=== PATIENT | female | born 1965 | race Caucasian/White ===

== ENCOUNTER 2024-09-17 15:52 | Emergency (ER) | payer MEDICAID ==
[~2024-09-17] VITALS: Ht 160 cm; Wt 72.6 kg
[2024-09-17 15:57] VITALS: O2SAT 98
[2024-09-17 16:50] LABS: BASOPHILS % 1.0 % (0.0-2.0); EOSINOPHILS % 1.9 % (0.0-5.0); HEMATOCRIT. 42.8 % (36.0-48.0); HEMOGLOBIN. 14.1 g/dL (12.0-16.0); LYMPHOCYTES % 40.0 % (20.0-50.0); MEAN PLATELET VOLUME 7.8 fl (7.4-10.4); MONOCYTES % 5.5 % (2.0-8.0); NEUTROPHILS % 51.6 % (40.0-76.0); PLATELET 250 x1000/uL (130-400); RED BLOOD CELL COUNT 4.86 mill/uL (4.2-5.4); RED CELL DISTRIBUTION WIDTH 15.0 % (11.6-14.6)
[2024-09-17 17:14] LABS: CREATININE 0.8 mg/dL (0.6-1.0)
[2024-09-17 17:15] LABS: TROPONIN I HIGH SENSITIVITY < 4 ng/L (3.0-34); UREA NITROGEN BLOOD 12 mg/dL (9-23)
[2024-09-17 18:47] LABS: ASPARTATE AMINOTRANSFERASE 23 IU/L (<34); BILIRUBIN DIRECT 0.2 mg/dL (<=3.0); BILIRUBIN TOTAL 0.6 mg/dL (0.1-1.0)
[2024-09-17 18:48] LABS: PROTEIN TOTAL 7.7 g/dL (6.0-8.3)
[2024-09-17 22:25] LABS: CLARITY URINE CLEAR (CLEAR); COLOR URINE YELLOW (YELLOW); GLUCOSE URINE NEGATIVE (NEGATIVE); KETONES URINE 1+ (NEGATIVE); LEUKOCYTE ESTERASE URINE NEGATIVE (NEGATIVE); NITRITE URINE NEGATIVE (NEGATIVE); OCCULT BLOOD URINE NEGATIVE (NEGATIVE); PH URINE 6.5 (4.5-8.0); PROTEIN URINE NEGATIVE (NEGATIVE); SPECIFIC GRAVITY URINE 1.011 (1.005-1.030); UROBILINOGEN URINE 0.2 E.U./dL (0.2-1.0)
[2024-09-17] MEDS ORDERED: IBUP-2030 MT (23:28)
[2024-09-17] MEDS: IBUPROFEN 800MG TABLET PO ONE (23:29)
[2024-09-17 23:41] VITALS: BP 161/91; PULSE 98; RESP 18; TEMP 36.7; O2SAT 100
[2024-09-18] MEDS ORDERED: HYDROCODONE/ACETAMINOPHEN 5/325MG TABLET PO SCH
== END 2024-09-17 23:41 | disposition home or self-care (01) ==
LOC: ER 15:52
DX: K76.89 Other specified diseases of liver (principal); N63.0 Unspecified lump in unspecified breast; I10 Essential (primary) hypertension
CPT/HCPCS: 36415; 71045; 71250; 74176; 76705; 80048; 80076; 81003; 84484; 85025; 85379; 93005; 99285